=== PATIENT | male | born 1980 | race Caucasian/White ===

== ENCOUNTER 2017-04-09 17:24 | Emergency (ER) | payer OTHER ==
[~2017-04-09] VITALS: Ht 172.7 cm; Wt 79.0 kg
[2017-04-09 22:57] VITALS: BP 129/85
== END 2017-04-09 22:58 | disposition home or self-care (01) ==
LOC: EDSEX 17:24 → ER 17:24
DX: R09.89 Other specified symptoms and signs involving the circulatory and respiratory systems (principal)
CPT/HCPCS: 99281